=== PATIENT | male | born 1965 | race Caucasian/White ===

== ENCOUNTER → 2019-07-08 | Outpatient (CLI) | payer OTHER ==
--- NOTE | 2019-07-08 10:41 | REP ---
Clinical: Fever and chills . Comparison: None . Technique: PA and lateral. Findings: The mediastinum and cardiac silhouette are normal. The lung alvarez are clear and without acute consolidation, effusion, or pneumothorax. The skeletal structures are intact and normal. Impression: 1. No acute cardiopulmonary process. Electronically Signed by Jace Khan MD 07/08/2019 10:33 A
== END ==
LOC: M LRY 10:14
PROVIDERS: ATTEND Physician Assistant
DX: R50.9 Fever, unspecified (principal); J40 Bronchitis, not specified as acute or chronic